=== PATIENT | male | born 1970 | race African-American/Black ===

== ENCOUNTER 2018-11-30 20:13 | Emergency (ER) | payer MEDICAID ==
[~2018-11-30] VITALS: Ht 180.3 cm; Wt 74.8 kg
[2018-11-30] MEDS ORDERED: LORazepam 2MG/ML-1ML VIAL IV ONE (22:00)
[2018-11-30] MEDS ORDERED: HALOPERIDOL LACTATE 5 MG/ML INJ VIAL IM ONE (22:00)
[2018-11-30] MEDS ORDERED: diphenhdrAMINE HCL 50 MG/1 ML VL IV ONE (22:00)
[2018-12-01 01:10] VITALS: BP 155/64
== END 2018-12-01 01:22 | disposition short-term general hospital (02) ==
LOC: ER 20:18
DX: S92.332A Displaced fracture of third metatarsal bone, left foot, initial encounter for closed fracture (principal); S92.342A Displaced fracture of fourth metatarsal bone, left foot, initial encounter for closed fracture; S20.212A Contusion of left front wall of thorax, initial encounter; Y09 Assault by unspecified means; Y93.89 Activity, other specified; Y99.8 Other external cause status; Y92.148 Other place in prison as the place of occurrence of the external cause
CPT/HCPCS: 71045; 73630; 96372; 96374; 96375; 99285; J1200; J1630; J2060; L3260